=== PATIENT | female | born 1960 | race Two or more races ===

== ENCOUNTER 2020-01-10 07:07 | Outpatient (CLI) | payer OTHER | END 2020-01-10 07:15 | disposition home or self-care (01) | LOC: TOM 07:07 | DX: R19.4 Change in bowel habit (principal); R10.84 Generalized abdominal pain ==

== ENCOUNTER 2021-02-05 09:22 | Outpatient (CLI) | payer OTHER | END 2021-02-05 09:32 | disposition home or self-care (01) | LOC: RAD 09:22 → SONOGRAMA 09:22 → RAD 09:32 → RX STUDY 09:45 | PROVIDERS: ATTEND General Practice | DX: R13.19 Other dysphagia (principal); T18.198A Other foreign object in esophagus causing other injury, initial encounter ==